=== PATIENT | female | born 1985 | race American Indian/Alaskan Native ===

== ENCOUNTER 2017-09-12 16:31 | Emergency (ER) | payer OTHER, MEDICAID ==
[2017-09-12 16:46] VITALS: BP 134/86
[2017-09-12] MEDS ORDERED: LACTATED RINGERS 500 ML IV ONE (16:58)
--- NOTE | 2017-09-12 18:11 | Ultrasound Report ---
FINAL REPORT PROCEDURE: US OB LIMITED TECHNIQUE: Real-time limited sonographic examination was performed for evaluation of size, position, heartbeat, fluid volume for each fetus with image documentation (1 or more fetuses). CPT 41284 HISTORY: [facility] COMPARISON: No prior studies are available for comparison. FINDINGS: There is a single living intrauterine gestation visualized currently in the vertex presentation with a heart rate of 149 beats per minute. Subjectively the amount of amniotic fluid appears normal. Placenta is located anteriorly and is grade 1. No abruption visualized. Detailed exam of the anatomy was not performed as this was not requested. measurements were not obtained. The internal cervical os was not visualized. IMPRESSION: Limited study shows single living intrauterine gestation in the vertex presentation. Subjectively the amount of amniotic fluid appears normal. No evidence of placenta abruption. Further evaluation was neither requested nor performed. If clinically indicated follow-up ultrasound could be performed to evaluate anatomy and growth parameters.
--- NOTE | 2017-09-12 19:27 | Event Note ---
Date: 09/12/17 Tracing reviewed. Pt shows no abruption on sono. Pt has cat I tracing. She c/o back and shoulder pain. Will refer to ER for evaluation as she is cleared from an ob standpoint.
== END 2017-09-12 19:55 | disposition left against medical advice (07) ==
LOC: ED 16:31 → TRG 16:31 → ED 19:55 → EDSTATUS 20:01
DX: Z04.3 Encounter for examination and observation following other accident (principal); Z53.21 Procedure and treatment not carried out due to patient leaving prior to being seen by health care provider
CPT/HCPCS: 59025; 76815; 86850; 86900; 86901